=== PATIENT | female | born 1970 | race Hispanic/Latino ===

== ENCOUNTER 2022-04-28 05:30 | Observation (INO) | payer OTHER ==
[2022-04-27 13:23] LABS: BASOPHILS % (AUTO) 0.4 % (0.0-5.0); EOSINOPHILS % (AUTO) 2.6 % (0.0-8.0); LYMPHOCYTES % (AUTO) 33.9 % (21.0-51.0); MEAN CORPUSCULAR HEMOGLOBIN 30.5 pg (27.0-33.0); MEAN CORPUSCULAR VOLUME 89.6 fL (79-99); MONOCYTES % (AUTO) 5.7 % (3.0-13.0); NEUTROPHILS % (AUTO) 57.2 % (40.0-77.0); PLATELET COUNT (AUTO) 306 K/uL (130-400); RED BLOOD CELL COUNT(AUTO) 4.69 MIL/uL (4.00-5.50); RED CELL DISTRIBUTION WIDTH 12.4 % (11.0-15.5); WHITE BLOOD COUNT (AUTO) 9.3 K/uL (4.8-10.8)
[2022-04-27 13:34] LABS: INR 1.12 (0.85-1.15); PROTHROMBIN TIME 12.1 SEC (9.6-11.6)
[2022-04-27 13:35] LABS: PARTIAL THROMBOPLASTIN TIME 28.5 SEC (26.3-35.5)
[2022-04-27 14:31] VITALS: BP 201/94
[~2022-04-28] VITALS: Ht 160 cm; Wt 83.5 kg
[2022-04-28] VITALS (25 sets, daily range): BP systolic 102–174; BP diastolic 60–98
[~2022-04-28 05:30] MED LIST: LISI1TAB51 PO; METF-444 PO
[2022-04-28 05:56] LABS: BILIRUBIN,URINE NEGATIVE (NEGATIVE); COLOR,URINE YELLOW (YELLOW); GLUCOSE, URINE (UA) 150 mg/dL (NEGATIVE); KETONES,URINE 5 mg/dL (NEGATIVE); LEUKOCYTE ESTERASE ,URINE 500 Leu/uL (NEGATIVE); NITRATE,URINE NEGATIVE (NEGATIVE); OCCULT BLOOD,URINE NEGATIVE (NEGATIVE); PROTEIN,URINE 100 mg/dL (NEGATIVE); UROBILINOGEN,URINE 0.2 mg/dL (0.2-1.0)
[2022-04-28 05:58] LABS: APPEARANCE,URINE SLIGHTLY CLOUDY (CLEAR)
[2022-04-28 06:01] LABS: BACTERIA,URINE FEW /HPF (None Seen); MUCUS,URINE FEW LPF (None Seen); SQUAMOUS EPITHELIAL CELL,UR MANY /HPF (0-2); WBC,URINE 26-50 /HPF (0-1)
[2022-04-28] MEDS ORDERED: 0.9%NACL 1000ML 1,000 ML IV ONE (06:05)
[2022-04-28] MEDS ORDERED: CEFAZOLIN SODIUM 1 GM VIAL ONE (06:07)
[2022-04-28] MEDS ORDERED: GLYCOPYRROLATE 1 MG/5 ML SYRINGE ONE (07:29)
[2022-04-28] MEDS ORDERED: PROPOFOL 10 MG/ML 20ML VIAL IV ONE (07:29)
[2022-04-28] MEDS ORDERED: LIDOCAINE PF 100MG/5ML (2%) SYRINGE 5ML ONE (07:29)
[2022-04-28] MEDS ORDERED: DEXAMETHASONE SOD PHOSPHATE 10MG/ML 1ML VIAL ONE (07:29)
[2022-04-28] MEDS ORDERED: NEOSTIGMINE 5MG/5ML SYR IV ONE (07:29)
[2022-04-28] MEDS ORDERED: SUCCINYLCHOLINE 200MG/10ML SYR ONE (07:29)
[2022-04-28] MEDS ORDERED: ROCURONIUM 10MG/1ML SYR 10 MG/ML ML ONE (07:30)
[2022-04-28] MEDS ORDERED: ONDANSETRON 4MG INJ ONE (07:30)
[2022-04-28] MEDS ORDERED: FENTANYL CITRATE PF 50 MCG/1 ML 2ML VIAL ONE ×3 (07:31→10:56)
[2022-04-28] MEDS ORDERED: MIDAZOLAM HCL 1 MG/ML 5ML VIAL ONE (07:43)
[2022-04-28] MEDS ORDERED: MEPERIDINE-PF 25 MG/ML SYG ONE (11:38)
[2022-04-28] MEDS ORDERED: IBUPROFEN 600 MG TABLET PO PRN (12:30)
[2022-04-28] MEDS ORDERED: ACETAMINOPHEN WITH CODEINE 1 TAB TAB PO PRN (12:30)
[2022-04-28] MEDS ORDERED: ONDANSETRON 4MG INJ IVP PRN (12:30)
[2022-04-28] MEDS ORDERED: PROMETHAZINE HCL 25 MG/ML 1ML AMPULE IM PRN (12:30)
[2022-04-28] MEDS ORDERED: BISACODYL 10 MG SUPP.RECT RC PRN (12:30)
[2022-04-28] MEDS: PROMETHAZINE HCL 25 MG/ML 1ML AMPULE IM PRN ×2 (13:11→16:43)
[2022-04-28] MEDS: MEPERIDINE-PF 75 MG/ML SYG IM PRN ×2 (13:12→16:44)
[2022-04-28] MEDS: LACTATED RINGERS 1000ML 1,000 ML IV SCH ×2 (15:27→21:17)
[2022-04-28] MEDS: INSULIN HUMULIN R 100 UNIT/ML 3ML SQ SCH ×2 (16:54→21:13)
[2022-04-28] MEDS: NITROFURANTOIN MONOHYD/M-CRYST 100 MG CAPSULE PO SCH (21:09)
[2022-04-29 03:34] VITALS: BP 158/90
[2022-04-29] MEDS: LACTATED RINGERS 1000ML 1,000 ML IV SCH (05:40)
[2022-04-29] MEDS: INSULIN HUMULIN R 100 UNIT/ML 3ML SQ SCH ×4 (07:05→20:54)
[2022-04-29 07:36] VITALS: BP 170/88
[2022-04-29] MEDS ORDERED: HYDROCODONE/ACETAMINOPHEN 5/325 MG TAB PO PRN (09:00)
[2022-04-29] MEDS ORDERED: ACETAMINOPHEN WITH CODEINE 1 TAB TAB PO PRN (09:00)
[2022-04-29] MEDS: NITROFURANTOIN MONOHYD/M-CRYST 100 MG CAPSULE PO SCH ×2 (09:20→20:45)
[2022-04-29] MEDS: SIMETHICONE 80 MG TAB.CHEW PO PRN ×2 (09:20→20:45)
[2022-04-29] MEDS: DOCUSATE SODIUM 100 MG CAP PO PRN ×2 (09:20→20:45)
[2022-04-29] MEDS: IBUPROFEN 800 MG TAB PO PRN ×2 (09:21→15:52)
[2022-04-29 10:06] LABS: MEAN CORPUSCULAR HEMOGLOBIN 31.1 pg (27.0-33.0); MEAN CORPUSCULAR VOLUME 88.9 fL (79-99); RED BLOOD CELL COUNT(AUTO) 4.05 MIL/uL (4.00-5.50); RED CELL DISTRIBUTION WIDTH 12.5 % (11.0-15.5); WHITE BLOOD COUNT (AUTO) 15.6 K/uL (4.8-10.8)
[2022-04-29 11:48] VITALS: BP 159/84
[2022-04-29 16:00] VITALS: BP 159/82
[2022-04-29 19:45] VITALS: BP 165/95
[2022-04-29 23:11] VITALS: BP 166/89
[2022-04-30 03:23] VITALS: BP 106/73
[2022-04-30 03:30] VITALS: BP 162/99
[2022-04-30] MEDS: INSULIN HUMULIN R 100 UNIT/ML 3ML SQ SCH ×2 (07:33→12:21)
[2022-04-30 08:00] VITALS: BP 167/93
[2022-04-30] MEDS: NITROFURANTOIN MONOHYD/M-CRYST 100 MG CAPSULE PO SCH (08:28)
[2022-04-30] MEDS: DOCUSATE SODIUM 100 MG CAP PO PRN (08:28)
[2022-04-30] MEDS: IBUPROFEN 800 MG TAB PO PRN (08:32)
[2022-04-30 11:22] VITALS: BP 133/85
[2022-04-30] MEDS ORDERED: NITR100C4 PO (11:51)
[2022-04-30] MEDS ORDERED: ACET-2079 PO (11:52)
== END 2022-04-30 13:30 | disposition home or self-care (01) ==
LOC: DAH 05:30 → DAHIP 05:31 → WSH 12:00
PROVIDERS: ADMIT Obstetrics & Gynecology; ATTEND Obstetrics & Gynecology
DX: N81.4 Uterovaginal prolapse, unspecified (principal); Z20.822 Contact with and (suspected) exposure to COVID-19; N81.2 Incomplete uterovaginal prolapse; N87.9 Dysplasia of cervix uteri, unspecified; N39.3 Stress incontinence (female) (male); N94.10 Unspecified dyspareunia; K46.9 Unspecified abdominal hernia without obstruction or gangrene; Z90.710 Acquired absence of both cervix and uterus; Z79.899 Other long term (current) drug therapy; Z98.890 Other specified postprocedural states
CPT/HCPCS: 84703; 85025; 85610; 85730; 86850; 86900; 86901; 87426; 36415 ×2; 58263; 57265; 57288; 96372 ×3; 87088; 82948 ×10; 81001; 85027; A4510; A4663; A4606; A4344; J3010 ×3; J0690; J0330; J3490; J1100; J2710; J7030; J2550 ×2; J2001; J2250; J2704; J2405; J2175 ×3; J1815 ×8; C1771; A4215; A4223; A4222; A4221; J7120 ×2; A4600; G0378 ×23

== ENCOUNTER → 2022-06-03 | Outpatient (CLI) | payer OTHER ==
[~2022-06-03] MED LIST changes: +ACET-2079 PO; +NITR100C4 PO
== END | disposition home or self-care (01) ==
LOC: SHCH 07:50
PROVIDERS: ATTEND Internal Medicine Cardiovascular Disease
DX: Z01.810 Encounter for preprocedural cardiovascular examination (principal); I35.0 Nonrheumatic aortic (valve) stenosis; I11.9 Hypertensive heart disease without heart failure
CPT/HCPCS: 93306